=== PATIENT | female | born 1990 | race Caucasian/White ===

== ENCOUNTER 2020-03-08 18:21 | Emergency (ER) | payer BC ==
[~2020-03-08] VITALS: Ht 157.5 cm; Wt 67.3 kg
[2020-03-08] MEDS ORDERED: PROZAC 20MG20 MG PO (18:36)
[2020-03-08] MEDS ORDERED: KLONOPIN 0.5MG0.5 MG PO (18:36)
[2020-03-08] MEDS ORDERED: DESYREL 50MG50 MG PO (18:37)
[2020-03-08] MEDS ORDERED: ADDERALL XR15 MG PO (18:37)
[2020-03-08 20:50] VITALS: BP 125/75; PULSE 76; TEMP 98.4
== END 2020-03-08 20:00 | disposition home or self-care (01) ==
LOC: COL.ER 18:21
DX: S93.402A Sprain of unspecified ligament of left ankle, initial encounter (principal); W10.9XXA Fall (on) (from) unspecified stairs and steps, initial encounter; X50.1XXA Overexertion from prolonged static or awkward postures, initial encounter
CPT/HCPCS: J1885